=== PATIENT | male | born 1985 | race Hispanic/Latino ===

== ENCOUNTER 2018-08-25 16:50 | Inpatient (IN) ==
[2018-08-25] MEDS ORDERED: DOCUSATE 100 MG CAPSULE PO PRN (17:04)
[2018-08-25] MEDS ORDERED: CALCIUM CARBONATE 500 MG (TUMS) CHEWABLE TABLET PO PRN (17:04)
[2018-08-25] MEDS ORDERED: HYDROmorphone 2 MG/1 ML IVP PRN (17:04)
[2018-08-25] MEDS ORDERED: HYDROcodone-APAP 5 MG -325 MG TABLET PO PRN (17:04)
[2018-08-25] MEDS ORDERED: LIDOCAINE W/ SODIUM BICARB 0.5 ML SYR SUBD PRN (17:04)
[2018-08-25] MEDS ORDERED: ONDANSETRON 4 MG/2 ML VIAL IVP PRN (17:04)
[2018-08-25] MEDS ORDERED: ACETAMINOPHEN 325 MG TABLET PO PRN (17:04)
[2018-08-25] MEDS ORDERED: Insulin Sliding Scale Protocol SUBCUT PRN (17:09)
[2018-08-25] MEDS ORDERED: Glucagon Inj Vial 1 MG/ML VIAL IM PRN (17:09)
[2018-08-25] MEDS ORDERED: DEXTROSE 50%-WATER SYRINGE 50 ML SYRINGE IVP PRN (17:09)
[2018-08-25] MEDS ORDERED: DEXTROSE 31 GM GEL PO PRN (17:09)
--- NOTE | 2018-08-25 17:15 | PDOC ---
HPI - History of Present Illness Date of Service: 08/25/18 Time of Service: 17:10 Chief Complaint: right great toe pain History of Present Illness: This is a very pleasant 33 year old with DMII, well controlled in the past with diet and exercise, who moved here 6 weeks ago for [employer] work. He expects to be in [place] for up to 3 years possibly. He had a perirectal abscess that required I and D recently. He was working and noticed that he developed a right great toe blister. He tried not to pop the blister but it popped anyway. He treated it locally with topical antibiotics, soaks, and hydrogen peroxide. Last Saturday, he noted the toe got red and swollen and tender. He denies any fever, chills, nausea, vomiting, or other systemic symptoms. The patient does admit to tobacco use, currently chews tobacco. In the orthopedic clinic, it was noted that the toe infection was severe, with some necrotic tissue apparently, and an X ray of the foot confirmed right great toe osteomyelitis. Due to the unknown nature of his diabetes control, I was asked to admit the patient for a presurgical evaluation and also to check on best antibiotic regimen to use. In terms of his diabetes mellitus, he has been on glipizide, has controlled with diet and exercise, and has been on metformin. Has not been on medications in quite a while now. He could not tolerate metformin. Past Medical History Medical History: 1. DMII, possibly complicated by peripheral neuropathy. Surgical History: 1. perirectal abscess. 2. back abscess drained. Pertinent Family History: significant for diabetes mellitus Past Social History: , from [place], no children. does not drink alcohol. smokes, but recently has started chewing tobacco. Here in [place], [place] , for work. Tobacco Use: Current Every Day Smoker Do you dip or chew tobacco: Yes In the Past 12 Months, Have Used or Abuse Any of the Following Substance: None Alcohol Use: None Medication / Allergies Home Medications: Home Medications 3 Medication Instructions Recorded Confirmed Type NK 08/25/18 08/25/18 History Allergies/Adverse Reactions: Allergies 3 Allergy/AdvReac Type Severity Reaction Status Date / Time Penicillins Allergy Severe Anaphylaxis Uncoded 08/25/18 17:11 Exam - Vitals Vital Signs: Temperature, 97.8, Heart rate, 106, RR 18, Blood pressure 157/105, oxygen saturation 98% - General General Appearance: No Acute Distress, Cooperative - Head Head Exam: Normal Inspection, Normocephalic, Atraumatic - Eye Eye Exam: POSITIVE: No Scleral Icterus - ENT ENT Exam: POSITIVE: Mucous Membranes Moist - Neck Neck Exam: Normal Inspection, No Tenderness, No Lymphadenopathy, No Thyromegaly , JVP is not Raised - Respiratory Respiratory Exam: POSITIVE: Clear to Auscultation - Bilaterally, Breathing Non Labored, Normal to Percussion and Palpation - Cardiovascular Cardiovascular Exam: POSITIVE: RRR, No Murmur, No Clicks, No Gallops, No Rubs, No JVD - GI/Abdominal GI/Abdominal Exam: POSITIVE: Normal Bowel Sounds, Non Tender, Non Distended, Soft - Rectal Rectal Exam: POSITIVE: Deferred - External Exam: POSITIVE: Deferred Exam: POSITIVE: Deferred - Extremities Extremities Exam: POSITIVE: No Clubbing Present, No Edema Present, No Cyanosis Present - Back Back Exam: POSITIVE: No CVA Tenderness - Neurological Neurological Exam: POSITIVE: Alert, Oriented x 3, No Facial Droop, Speech Intact / Clear, Moves All Extremities Equally - Psychiatric Psychiatric Exam: POSITIVE: Normal Affect, Normal Mood - Central Line Examination Central Line Present on Admission: No Results - Labs CBC and BMP: 08/25/18 17:25 08/25/18 17:25 Additional Lab Results: I am ordering several labs, including a CBC with differential, CMP, PT, INR, sed rate, CRP, HbA1C, and lipid panel, and thyroid studies. - Imaging Status: Image Reviewed by Me (I viewed the foot X-ray in the clinic and discussed with Dr. Mayer. It confirms osteomyelitis of the right great toe with bone obliteration) Assessment and Plan - Patient Problems (1) Osteomyelitis of toe of right foot Current Visit: Yes Status: Acute Code(s): M86.9 - Osteomyelitis, unspecified (2) DMII (diabetes mellitus, type 2) Current Visit: Yes Status: Acute Code(s): E11.9 - Type 2 diabetes mellitus without complications Qualifiers: Diabetes mellitus custodial insulin use: without termite control technician use Diabetes mellitus complication status: with skin complications Diabetes mellitus complication detail: with other skin complication Qualified Code(s): E11.628 - Type 2 diabetes mellitus with other skin complications (3) Tobacco abuse Current Visit: Yes Status: Acute Code(s): Z72.0 - Tobacco use (4) Tobacco abuse counseling Current Visit: Yes Status: Acute Code(s): Z71.6 - Tobacco abuse counseling - Assessment / Plan Additional Assessment/Plan Details: admit to inpatient ortho consulted, probable amputation tomorrow of toe (right) insulin sliding scale laboratory workup IV antibiotics through surgery, then if no soft tissue infection post surgery, may need to stay on keflext for 5 to 7 days. If soft tissue infection and cellulitis after surgery, recommend ID consultation. I curbsided ID and they agreed with this plan. pain meds/anti-emetics IV fluids and NPO overnight, likely to OR tomorrow.
[2018-08-25 17:36] LABS: BASOPHILS # (AUTO) 0.03 10*3/UL; BASOPHILS % (AUTO) 0.5 % (0-1); EOSINOPHILS # (AUTO) 0.24 10*3/UL; EOSINOPHILS % (AUTO) 3.6 % (0-8); Hematocrit [HCT] 39.9 % (42.0-52.0); Hemoglobin [HGB] 14.3 g/dL (14.0-18.0); LYMPHOCYTES # (AUTO) 1.72 10*3/uL; MEAN CORPUSCULAR HGB CONC 35.8 g/dL (33-37); MEAN CORPUSCULAR VOLUME 80.9 FL (80-90); MEAN PLATELET VOLUME 8.9 FL (7.4-12.2); MONOCYTES # (AUTO) 0.59 10*3/UL (0.3-0.8); MONOCYTES % (AUTO) 8.9 % (5-15); NEUTROPHILS # (AUTO) 4.02 10*3/UL; NEUTROPHILS % (AUTO) 60.7 % (50-80); RED BLOOD COUNT 4.93 10^6/uL (4.70-6.10)
[2018-08-25 17:45] LABS: HEMOGLOBIN A1C 10.44 % (4.2-6.0)
[2018-08-25 17:49] LABS: BLOOD UREA NITROGEN 16 mg/dL (7-22); CHOL/HDL RATIO 9.42 RATIO (0-4.0); SERUM ALBUMIN 4.3 g/dL (3.5-4.8); SERUM CHOLESTEROL 264 mg/dL (120-200)
[2018-08-25 17:50] LABS: PLATELET MORPHOLOGY COMMENT NORMAL MORPHOLOGY (NORM); RBC MORPHOLOGY COMMENT NORMAL MORPHOLOGY (NORM); WBC MORPHOLOGY COMMENT NORMAL MORPHOLOGY (NORM)
[2018-08-25] MEDS: NICOTINE 21 MG /DAY PATCH TRANSDERM SCH (18:13)
[2018-08-25] MEDS ORDERED: Insulin Lispro Flexpen 300 UNIT/3 ML INSULN.PEN SUBCUT ONE (18:16)
[2018-08-25] MEDS ORDERED: Vancomycin-PHA to Dose IV PRN (19:05)
[2018-08-25] MEDS ORDERED: cefTAZidime Inj 2 GM in Sodium Chloride 0.9% 100 ML IV SCH (20:00)
[2018-08-25] MEDS ORDERED: HYDRALAZINE 20 MG/1 ML IVP PRN (20:00)
[2018-08-25] MEDS: Insulin Lispro Flexpen 300 UNIT/3 ML INSULN.PEN SUBCUT SCH (20:39)
[2018-08-25] MEDS ORDERED: Insulin Glargine SoloStar Inj 100 UNIT/ML INSULN.PEN SUBCUT SCH (21:00)
[2018-08-26] MEDS: Lactated Ringers 1,000 ML PRIMARY IV SCH ×3 (01:41→19:01)
[2018-08-26 05:21] LABS: BASOPHILS # (AUTO) 0.02 10*3/UL; BASOPHILS % (AUTO) 0.3 % (0-1); EOSINOPHILS # (AUTO) 0.26 10*3/UL; EOSINOPHILS % (AUTO) 4.4 % (0-8); Hemoglobin [HGB] 12.2 g/dL (14.0-18.0); LYMPHOCYTES # (AUTO) 1.68 10*3/uL; MEAN CORPUSCULAR HEMOGLOBIN 27.7 PG (27-31); MEAN CORPUSCULAR HGB CONC 33.9 g/dL (33-37); MEAN CORPUSCULAR VOLUME 81.6 FL (80-90); MONOCYTES # (AUTO) 0.45 10*3/UL (0.3-0.8); MONOCYTES % (AUTO) 7.6 % (5-15); NEUTROPHILS # (AUTO) 3.47 10*3/UL; NEUTROPHILS % (AUTO) 58.4 % (50-80); RED BLOOD COUNT 4.41 10^6/uL (4.70-6.10)
[2018-08-26 05:27] LABS: PLATELET MORPHOLOGY COMMENT NORMAL MORPHOLOGY (NORM); RBC MORPHOLOGY COMMENT NORMAL MORPHOLOGY (NORM); WBC MORPHOLOGY COMMENT NORMAL MORPHOLOGY (NORM)
[2018-08-26 05:31] LABS: BLOOD UREA NITROGEN 15 mg/dL (7-22)
[2018-08-26] MEDS: cefTAZidime Inj 2 GM in Sodium Chloride 0.9% 100 ML IV SCH ×3 (06:05→17:18)
[2018-08-26] MEDS: GEMFIBROZIL 600 MG TABLET PO SCH ×2 (06:36→17:57)
[2018-08-26] MEDS: Insulin Lispro Flexpen 300 UNIT/3 ML INSULN.PEN SUBCUT SCH ×4 (06:37→21:02)
[2018-08-26] MEDS: NICOTINE 21 MG /DAY PATCH TRANSDERM SCH (08:00)
--- NOTE | 2018-08-26 09:29 | CONSULT ---
Consult Note - Consult Reason for Consult: PreOp Consulation : Ortho Primary Care Provider: Denys Sy MD - History of Present Illness History of Present Illness: This patient is 33 years old and is admitted for osteomyelitis of the right great toe distal phalanx with subsequent ulceration of the skin. I saw him in my office yesterday afternoon late. I consulted Dr. Briscoe who admitted the patient last night. Patient is in need of amputation of the right great toe through the IP joint level. Plan is to do this this afternoon. He is not currently septic from this but could become so. Apparently he is MRSA positive. He has been given some antibiotics specifically vancomycin upon admission. Examination of the right great toe reveals necrotic ulceration distal half of the great toe. More involvement plantarward. The toe has a foul odor with discharge dripping from the toe. X-rays reveal osteomyelitis of the distal one half of the distal phalanx. There is moth-eaten appearance of the bone. Labs show a white blood cell count of 5000+ CRP of 3.2. Patient is currently afebrile. Impression: Osteomyelitis with diabetic ulceration right great toe. Plan: Is to proceed with amputation of the right great toe through the IP joint level. We'll likely leave this open and do a delayed primary closure tomorrow afternoon. Consent will be obtained. Past Medical History Medical History: 1. DMII, possibly complicated by peripheral neuropathy. Surgical History: 1. perirectal abscess. 2. back abscess drained. Pertinent Family History: significant for diabetes mellitus Past Social History: , from [place], no children. does not drink alcohol. smokes, but recently has started chewing tobacco. Here in [place], [place] , for work. Tobacco Use: Current Every Day Smoker Do you dip or chew tobacco: Yes In the Past 12 Months, Have Used or Abuse Any of the Following Substance: None Alcohol Use: None Medication / Allergies Home Medications: Home Medications 3 Medication Instructions Recorded Confirmed Type NK 08/25/18 08/25/18 History Allergies/Adverse Reactions: Allergies 3 Allergy/AdvReac Type Severity Reaction Status Date / Time Penicillins Allergy Severe Anaphylaxis Uncoded 08/26/18 07:24 Exam - Vitals Vital Signs: Vital Signs Temperature 97.7 F Temperature Source Temporal Artery Scan Pulse Rate [Pulse Oximeter] 91 Pulse Rate 86 Respiratory Rate 20 Blood Pressure [Right Arm] 141/86 Pulse Ox 98 Oxygen Delivery Method Room Air Height 5 ft 7 in Weight 199 lb Results - Labs CBC and BMP: 08/26/18 04:40 08/26/18 04:40
--- NOTE | 2018-08-26 09:52 | PDOC(PROG) ---
Date of Service: 08/26/18 Time of Service: 10:00 Interval History: Subjective Patient was admitted yesterday for osteomyelitis of the right big toe. He Said he had diabetes 14 years. Was on glipizide but being off that for many years ago. He said he was heavier and lost weight. He manages diabetes with diet and exercise. But he did admit that he is not exercising much. There is no significant pain. Objective : Data - Labs CBC and BMP: 08/26/18 04:40 08/26/18 04:40 Objective : Exam - General General Appearance: No Acute Distress, Cooperative - Head Head Exam: Normal Inspection - Eye Eye Exam: Normal Appearance - ENT ENT Exam: Normal Exam - Neck Neck Exam: Normal Inspection - Respiratory Respiratory Exam: Clear to Auscultation - Bilaterally - Cardiovascular Cardiovascular Exam: RRR - GI/Abdominal GI/Abdominal Exam: Normal Bowel Sounds, Non Tender, Non Distended, Soft, No Organomegaly - Rectal Rectal Exam: Deferred - External Exam: Deferred - Extremities Additional Extremities Exam Details: Dressing applied to the right foot. - Neurological Neurological Exam: Alert, Oriented x 3, CN II-XII Intact, No Facial Droop, Speech Intact / Clear - Psychiatric Psychiatric Exam: Normal Affect Assessment and Plan - Patient Problems (1) Osteomyelitis of toe of right foot Current Visit: Yes Status: Acute Comment: He will have surgery today. Per my discussion with Dr. Mayer he will leave the wound open. He'll take him tomorrow to close it. Code(s): M86.9 - Osteomyelitis, unspecified (2) DMII (diabetes mellitus, type 2) Current Visit: Yes Status: Acute Comment: For diabetes he is on insulin. I think post discharge neisha probably put him on oral medications based on his preference. He was on glipizide before. He said he never tolerated metformin before. Code(s): E11.9 - Type 2 diabetes mellitus without complications Qualifiers: Diabetes mellitus care home insulin use: without care home use Diabetes mellitus complication status: with skin complications Diabetes mellitus complication detail: with other skin complication Qualified Code(s): E11.628 - Type 2 diabetes mellitus with other skin complications (3) Tobacco abuse Current Visit: Yes Status: Acute Comment: He has on nicotine patch. And he was counseled on quitting smoking. Code(s): Z72.0 - Tobacco use
[2018-08-26] MEDS ORDERED: Lactated Ringers 1,000 ML PRIMARY IV SCH (11:30)
[2018-08-26] MEDS ORDERED: Nasal Sanitizer POPSWAB ampule 3 AMP (Nozin) PREOP DOSE ENOS SCH (12:00)
[2018-08-26] MEDS ORDERED: ROPIVACAINE HCL 7.5 MG/1 ML - 20 ML ONE (13:20)
[2018-08-26] MEDS ORDERED: fentaNYL Inj 100 MCG/2 ML VIAL ONE (13:21)
[2018-08-26] MEDS ORDERED: LIDOCAINE 2%/ EPI 1:200,000 - 20 ML VIAL ONE (13:21)
[2018-08-26] MEDS ORDERED: MIDAZOLAM 5 MG/1 ML ONE (13:21)
[2018-08-26] MEDS ORDERED: LIDOCAINE W/ SODIUM BICARB 0.5 ML SYR ONE (13:30)
--- NOTE | 2018-08-26 13:55 | CRNA.PROCE ---
Nerve Block Documentation - - Safety Measures: Time Out Taken, Site Verified - - Type of Nerve Block Used: Right Popliteal Fossa Block Position for Nerve Block: Prone Sedation Used - Enter Amount in Comment Field [ANES.SEDAT]: Midazolam (mg): Yes (3), Fentanyl (mcg): Yes (100) Skin Prep Used: ChloroPrep (Twice) Technique: Nerve Stimulator Nerve Block Needle Used: 80 mm ProBlk II Stimulation Hz: 1 Stimulation Staring mA: 1.8 Stimulation Ending mA: 0.6 Local Anesthetic - Enter Amt in Comment Field [ANES.LOCNB]: 2 % Xylocaine with Epinephrine 1:200,000 (mL): Yes (20 ml), Other Anesthetic: Yes (20 ml 0f 0.7% Ropi) Additives to Nerve Blocks: Dexamethasone (mg): Yes (4 mg) - - PreOp Block : Time In: 13:25 PreOp Block : Time Out: 13:37 Anesthesia Time - Other Weight: 90.265 kg Height: 5 ft 7 in Body Mass Index (BMI): 31.1
[2018-08-26] MEDS ORDERED: PROPOFOL 10 MG/1 ML (200 MG/20 ML) VIAL IV ONE (15:02)
--- NOTE | 2018-08-26 15:42 | ORTHO.OP ---
Surgery Date: 08/26/18 Preoperative Diagnosis: #1 osteomyelitis distal phalanx right great toe #2 diabetic ulcer right great toe with cellulitis. Postoperative Diagnosis: Same Procedure: Amputation right great toe through the IP joint level with open packing Surgeon: Fiona Mayer MD Anesthesia Provider: Iwona Alberto CRNA Anesthesia Type: Regional, MAC Estimated Blood Loss (mL): 15 Fluids: Crystalloid Pathology: Right great toe and accompanying distal phalanx submitted to pathology #2 cultures right great toe for both aerobes and anaerobes. Indications: Osteomyelitis right great toe distal phalanx with foul-smelling necrotic ulcer Findings: See operative report Complications: None Operative Summary: Taken to recovery room in stable condition.
--- NOTE | 2018-08-26 15:45 | CRNA.PROGR ---
Anesthesia Time - Procedure/Recovery Time Start Date: 08/26/18 End Date: 08/26/18 Anesthesia : Time In: 14:48 Anesthesia : Time Out: 15:35 Anesthesia : Total Time: 47 - Block Time PreOp Block : Time In: 13:25 PreOp Block : Time Out: 13:37 - Total Anesthesia Time Total Anesthesia Time (minutes): 47 - Other Weight: 90.265 kg Height: 5 ft 7 in Body Mass Index (BMI): 31.1 Physical Status: P3 (Diabetic, tobacco) Anesthesia Type: Popliteal Fossa Block
--- NOTE | 2018-08-26 15:45 | CRNA.PROGR ---
Post Anesthesia Phase II - Post Anesthesia Phase II Patient Stable and Discharged To: Med/Surg Care Assumed By Surgeon: Fiona Mayer MD Temperature: 98.9 F Pulse Rate: 86 Respiratory Rate: 16 Pulse Ox: 98 Total Ethel Score at Discharge: 9 Post Anesthesia Discharge Criteria Met: Yes
[2018-08-26] MEDS ORDERED: CALCIUM CARBONATE 500 MG (TUMS) CHEWABLE TABLET PO PRN (16:03)
[2018-08-26] MEDS ORDERED: MORPHINE SULFATE 2 MG/1 ML IVP PRN (16:03)
[2018-08-26] MEDS ORDERED: IBUPROFEN 400 MG TABLET PO PRN (16:03)
[2018-08-26] MEDS ORDERED: Prochlorperazine Tab 10 MG TAB PO PRN (16:03)
[2018-08-26] MEDS ORDERED: ONDANSETRON 4 MG/2 ML VIAL IVP PRN (16:03)
[2018-08-26] MEDS ORDERED: BISACODYL 5 MG TABLET PO PRN (16:03)
[2018-08-26] MEDS ORDERED: Ondansetron ODT Tab 8 MG TAB PO PRN (16:03)
[2018-08-26] MEDS ORDERED: diphenhydrAMINE 25 MG CAPSULE PO PRN (16:03)
[2018-08-26] MEDS ORDERED: HYDROcodone-APAP 7.5 MG-325 MG TABLET PO PRN (16:03)
[2018-08-26] MEDS ORDERED: ACETAMINOPHEN 325 MG TABLET PO PRN (16:03)
[2018-08-26] MEDS ORDERED: MAG HYDROX/AL HYDROX/SIMETH 30 ML SUSP PO PRN (16:03)
[2018-08-26] MEDS ORDERED: BISACODYL 10 MG SUPPOSITORY RECTAL PRN (16:03)
[2018-08-26] MEDS ORDERED: MORPHINE SULFATE 2 MG/1 ML IV PRN ×2 (16:19→16:30)
[2018-08-26] MEDS ORDERED: MORPHINE SULFATE 10 MG/1 ML IV PRN ×2 (16:19→16:30)
[2018-08-26] MEDS ORDERED: MORPHINE SULFATE 4 MG/1 ML IV PRN ×2 (16:19→16:30)
--- NOTE | 2018-08-26 16:32 | PT AM DAY ---
AM - Physical Therapy S: We had orders for an initial evaluation under Dr. Aguilar; however, the therapist participated with rounds with Dr. Mayer. Per verbal orders from Dr. Mayer, the patient is undergoing amputation surgery later this afternoon and states he will be taking care of the dressings unless otherwise notified. O: The patient was issued a short CAM boot for use following his amputation surgery later this afternoon. P: No further therapy is indicated at this time. MTDD
[2018-08-26] MEDS: Nasal Sanitizer POPSWAB ampule 1 AMP (Nozin) ENOS SCH (20:21)
[2018-08-26] MEDS ORDERED: DEXTROSE 31 GM GEL PO PRN (20:29)
[2018-08-26] MEDS ORDERED: Insulin Sliding Scale Protocol SUBCUT PRN (20:29)
[2018-08-26] MEDS ORDERED: DEXTROSE 50%-WATER SYRINGE 50 ML SYRINGE IVP PRN (20:29)
[2018-08-26] MEDS ORDERED: Glucagon Inj Vial 1 MG/ML VIAL IM PRN (20:29)
[2018-08-26] MEDS ORDERED: Insulin Glargine SoloStar Inj 100 UNIT/ML INSULN.PEN SUBCUT SCH (21:00)
[2018-08-26] MEDS ORDERED: Insulin Lispro Flexpen 300 UNIT/3 ML INSULN.PEN SUBCUT ONE (23:24)
[2018-08-27] MEDS: cefTAZidime Inj 2 GM in Sodium Chloride 0.9% 100 ML IV SCH ×4 (01:42→22:15)
[2018-08-27] MEDS: Insulin Lispro Flexpen 300 UNIT/3 ML INSULN.PEN SUBCUT SCH ×4 (06:34→21:02)
[2018-08-27] MEDS: GEMFIBROZIL 600 MG TABLET PO SCH ×2 (06:34→18:37)
--- NOTE | 2018-08-27 08:23 | ORTHO.PROG ---
Last Taken Vital Signs: Vital Signs - Last Taken Temperature 98.1 F 08/27/18 06:32 Pulse Rate 93 08/27/18 06:32 Respiratory Rate 18 08/27/18 06:32 Blood Pressure 135/102 08/27/18 06:32 Pulse Ox 98 08/27/18 06:32 Subjective: Patient sitting up in bed. His is arrived from [place]. They plan on going back to [place] for Thanksgiving once he leaves here. Not reporting much pain. Objective: Vital signs stable patient afebrile. Right foot dressing is clean and dry. Gram stain shows many gram-positive cocci. Cultures are pending. Assessment: Impression: Doing well postop day 1 from amputation right great toe for osteomyelitis. Plan: Plan: Is to continue IV vancomycin for now. We will decide what to be the best antibiotic regimen once he leaves here, as he will be traveling to [place] for about a week.
[2018-08-27] MEDS: NICOTINE 21 MG /DAY PATCH TRANSDERM SCH (08:28)
[2018-08-27] MEDS: Nasal Sanitizer POPSWAB ampule 1 AMP (Nozin) ENOS SCH ×2 (08:29→21:24)
[2018-08-27 08:53] LABS: BASOPHILS # (AUTO) 0.02 10*3/UL; BASOPHILS % (AUTO) 0.2 % (0-1); EOSINOPHILS % (AUTO) 1.1 % (0-8); Hematocrit [HCT] 37.2 % (42.0-52.0); Hemoglobin [HGB] 13.2 g/dL (14.0-18.0); LYMPHOCYTES # (AUTO) 1.52 10*3/uL; MEAN CORPUSCULAR HEMOGLOBIN 28.7 PG (27-31); MEAN CORPUSCULAR HGB CONC 35.5 g/dL (33-37); MEAN CORPUSCULAR VOLUME 80.9 FL (80-90); MEAN PLATELET VOLUME 8.6 FL (7.4-12.2); MONOCYTES # (AUTO) 0.54 10*3/UL (0.3-0.8); MONOCYTES % (AUTO) 5.8 % (5-15); NEUTROPHILS # (AUTO) 7.04 10*3/UL; NEUTROPHILS % (AUTO) 76.1 % (50-80)
[2018-08-27 08:54] LABS: PLATELET MORPHOLOGY COMMENT NORMAL MORPHOLOGY (NORM); RBC MORPHOLOGY COMMENT NORMAL MORPHOLOGY (NORM); WBC MORPHOLOGY COMMENT NORMAL MORPHOLOGY (NORM)
--- NOTE | 2018-08-27 08:57 | PDOC(PROG) ---
Date of Service: 08/27/18 Time of Service: 08:35 Interval History: Subjective Patient was sitting in bed does not appear in distress. Denying complaint. No significant pain. Objective : Data - Labs CBC and BMP: 08/27/18 08:48 08/26/18 04:40 Objective : Exam - General General Appearance: No Acute Distress, Cooperative - Head Head Exam: Normal Inspection - Eye Eye Exam: Normal Appearance - ENT ENT Exam: Normal Exam - Neck Neck Exam: Normal Inspection - Respiratory Respiratory Exam: Clear to Auscultation - Bilaterally - Cardiovascular Cardiovascular Exam: RRR - GI/Abdominal GI/Abdominal Exam: Normal Bowel Sounds, Non Tender, Non Distended, Soft, No Organomegaly - Rectal Rectal Exam: Deferred - External Exam: Deferred - Extremities Additional Extremities Exam Details: Dressing applied to the right foot - Back Back Exam: Normal Inspection - Neurological Neurological Exam: Alert, Oriented x 3, CN II-XII Intact, No Facial Droop, Speech Intact / Clear, Moves All Extremities Equally - Psychiatric Psychiatric Exam: Normal Affect Assessment and Plan - Patient Problems (1) Osteomyelitis of toe of right foot Current Visit: Yes Status: Acute Comment: Status post amputation of the distal phalanx. Dr. Mayer will take him again to close the wound today. Cultures still pending. once I have the result will speak with infectious disease. Code(s): M86.9 - Osteomyelitis, unspecified (2) DMII (diabetes mellitus, type 2) Current Visit: Yes Status: Acute Comment: His blood sugar really spiked last night and we had to give him extra insulin. I did tell him I'm not sure that oral medication will be enough to control his blood sugar. He is okay with being on inslin and so I think on discharge will put him on insulin. Code(s): E11.9 - Type 2 diabetes mellitus without complications Qualifiers: Diabetes mellitus nursing home insulin use: without termite control service representative use Diabetes mellitus complication status: with skin complications Diabetes mellitus complication detail: with other skin complication Qualified Code(s): E11.628 - Type 2 diabetes mellitus with other skin complications (3) Tobacco abuse Current Visit: Yes Status: Acute Comment: He has a nicotine patch. Code(s): Z72.0 - Tobacco use (4) Hypertriglyceridemia Current Visit: Yes Status: Acute Comment: He is on Lopid continue. Code(s): E78.1 - Pure hyperglyceridemia
[2018-08-27] MEDS ORDERED: Lactated Ringers 1,000 ML PRIMARY IV SCH ×2 (11:45→19:47)
[2018-08-27] MEDS ORDERED: LIDOCAINE 2%/ EPI 1:200,000 - 20 ML VIAL ONE (17:34)
[2018-08-27] MEDS ORDERED: MIDAZOLAM 5 MG/1 ML ONE (17:34)
[2018-08-27] MEDS ORDERED: BUPivacaine Inj 0.5% PF (5mg/ml) 30ml vial ONE (17:34)
[2018-08-27] MEDS ORDERED: cloNIDine HCL/PF 100 MCG/ML - 10 ML VIAL ONE (17:34)
[2018-08-27] MEDS ORDERED: fentaNYL Inj 100 MCG/2 ML VIAL ONE (17:34)
[2018-08-27] MEDS ORDERED: LIDOCAINE W/ SODIUM BICARB 0.5 ML SYR ONE (17:38)
[2018-08-27] MEDS ORDERED: PROPOFOL 10 MG/1 ML (200 MG/20 ML) VIAL IV ONE (18:12)
--- NOTE | 2018-08-27 18:25 | CRNA.PROCE ---
Nerve Block Documentation - - Type of Nerve Block Used: Right Popliteal Fossa Block Position for Nerve Block: Prone Moniters Used During Block: EKG, SPO2, NIBP Oxygen Supplemented: Yes Sedation Used - Enter Amount in Comment Field [ANES.SEDAT]: Midazolam (mg): Yes (2mg), Fentanyl (mcg): Yes (50mcg) Skin Prep Used: ChloroPrep Draped: No Technique: Nerve Stimulator Nerve Block Needle Used: GANTEC 50 mm Stimulation Hz: 2 Stimulation Staring mA: 1.4 Stimulation Ending mA: 0.44 Local Anesthetic - Enter Amt in Comment Field [ANES.LOCNB]: 0.5 % Bupivacaine Plain (mL): Yes (20ml), 2 % Xylocaine with Epinephrine 1:200,000 (mL): Yes (20ml ) Additives to Nerve Blocks: Clonidine (mg): Yes (.1mg) - - PreOp Block : Time In: 18:20 PreOp Block : Time Out: 18:35 Anesthesia Time - Block Time PreOp Block : Time In: 13:25 PreOp Block : Time Out: 13:37 - Other Weight: 90.265 kg Height: 5 ft 7 in Body Mass Index (BMI): 31.1
[2018-08-27] MEDS ORDERED: NEOMYCIN/BACITRACIN/POLYMYXIN 0.9 GM OINT PACKET TOPICAL ONE (18:36)
--- NOTE | 2018-08-27 18:53 | CRNA.PROGR ---
Anesthesia Time - Procedure/Recovery Time Start Date: 08/27/18 End Date: 08/27/18 Anesthesia : Time In: 19:05 Anesthesia : Time Out: 19:48 Anesthesia : Total Time: 43 - Block Time Start Date: 08/27/18 End Date: 08/27/18 PreOp Block : Time In: 13:25 PreOp Block : Time Out: 13:37 PreOp Block : Total Time: 12 - Total Anesthesia Time Total Anesthesia Time (minutes): 55 - Other Weight: 90.265 kg Height: 5 ft 7 in Body Mass Index (BMI): 31.1 Physical Status: P2 Anesthesia Type: Popliteal Fossa Block (with sedation)
--- NOTE | 2018-08-27 18:53 | CRNA.PROGR ---
Post Anesthesia Phase II - Post Anesthesia Phase II Patient Stable and Discharged To: Phase II Care Assumed By Surgeon: Fiona Mayer MD Temperature: 97.3 F Pulse Rate: 85 Respiratory Rate: 18 Blood Pressure: 121/79 Pulse Ox: 97 Total Tehel Score at Discharge: 9 Post Anesthesia Discharge Criteria Met: Yes
--- NOTE | 2018-08-27 18:55 | ORTHO.OP ---
Surgery Date: 08/27/18 Preoperative Diagnosis: Osteomyelitis distal phalanx right great toe, status post amputation #2 diabetic ulcer right great toe Postoperative Diagnosis: Same Procedure: I&D with delayed primary closure right great toe wound Surgeon: Fiona Mayer MD Anesthesia Provider: Emmanuel Knight CRNA Anesthesia Type: Regional Estimated Blood Loss (mL): 10 Fluids: Crystalloid Complications: None Operative Summary: Taken to recovery room in stable condition.
[2018-08-27] MEDS ORDERED: DEXTROSE 31 GM GEL PO PRN ×2 (19:47)
[2018-08-27] MEDS ORDERED: HYDROcodone-APAP 7.5 MG-325 MG TABLET PO PRN (19:47)
[2018-08-27] MEDS ORDERED: Ondansetron ODT Tab 8 MG TAB PO PRN ×2 (19:47)
[2018-08-27] MEDS ORDERED: DEXTROSE 50%-WATER SYRINGE 50 ML SYRINGE IVP PRN ×2 (19:47)
[2018-08-27] MEDS ORDERED: diphenhydrAMINE 25 MG CAPSULE PO PRN ×2 (19:47)
[2018-08-27] MEDS ORDERED: ONDANSETRON 4 MG/2 ML VIAL IVP PRN (19:47)
[2018-08-27] MEDS ORDERED: MORPHINE SULFATE 10 MG/1 ML IV PRN (19:47)
[2018-08-27] MEDS ORDERED: MORPHINE SULFATE 4 MG/1 ML IV PRN (19:47)
[2018-08-27] MEDS ORDERED: Glucagon Inj Vial 1 MG/ML VIAL IM PRN ×2 (19:47)
[2018-08-27] MEDS ORDERED: MAG HYDROX/AL HYDROX/SIMETH 30 ML SUSP PO PRN ×2 (19:47)
[2018-08-27] MEDS ORDERED: CALCIUM CARBONATE 500 MG (TUMS) CHEWABLE TABLET PO PRN ×2 (19:47)
[2018-08-27] MEDS ORDERED: Prochlorperazine Tab 10 MG TAB PO PRN ×2 (19:47)
[2018-08-27] MEDS ORDERED: BISACODYL 10 MG SUPPOSITORY RECTAL PRN ×2 (19:47)
[2018-08-27] MEDS ORDERED: ACETAMINOPHEN 325 MG TABLET PO PRN ×2 (19:47)
[2018-08-27] MEDS ORDERED: Insulin Sliding Scale Protocol SUBCUT PRN (19:47)
[2018-08-27] MEDS ORDERED: IBUPROFEN 400 MG TABLET PO PRN ×2 (19:47)
[2018-08-27] MEDS ORDERED: HYDRALAZINE 20 MG/1 ML IVP PRN (19:47)
[2018-08-27] MEDS ORDERED: MORPHINE SULFATE 2 MG/1 ML IV PRN (19:47)
[2018-08-27] MEDS ORDERED: BISACODYL 5 MG TABLET PO PRN ×2 (19:47)
[2018-08-27] MEDS ORDERED: Insulin Glargine SoloStar Inj 100 UNIT/ML INSULN.PEN SUBCUT SCH ×2 (21:00)
[2018-08-27] MEDS ORDERED: Ampicillin/Sulbactam Inj 3 GM in Sodium Chloride 0.9% 100 ML IV SCH (21:00)
[2018-08-28] MEDS: cefTAZidime Inj 2 GM in Sodium Chloride 0.9% 100 ML IV SCH (05:23)
[2018-08-28] MEDS: Insulin Lispro Flexpen 300 UNIT/3 ML INSULN.PEN SUBCUT SCH ×2 (06:51→11:25)
[2018-08-28] MEDS ORDERED: GEMFIBROZIL 600 MG TABLET PO SCH (07:00)
[2018-08-28] MEDS ORDERED: cefTAZidime Inj 2 GM in Sodium Chloride 0.9% 100 ML IV SCH ×2 (07:45→21:00)
--- NOTE | 2018-08-28 08:37 | ORTHO.PROG ---
Last Taken Vital Signs: Vital Signs - Last Taken Temperature 96.9 F 08/28/18 06:40 Pulse Rate 80 08/28/18 06:40 Respiratory Rate 18 08/28/18 06:40 Blood Pressure 141/97 08/28/18 06:40 Pulse Ox 99 08/28/18 06:40 Subjective: Patient lying in bed. Not reporting much pain. Objective: Vital signs stable patient afebrile. Right foot dressing clean and dry. Cultures are still pending. Likely is going to be Klebsiella pneumonia and possibly Enterococcus faecalis. Sensitivity still to follow. Assessment: Impression: Doing well following amputation right great toe for osteomyelitis. Plan: Plan: Is to with the sensitivities and decide on appropriate antibiotics. Patient is allergic to penicillin so have to be something other than penicillin
--- NOTE | 2018-08-28 08:43 | PDOC(PROG) ---
Date of Service: 08/28/18 Time of Service: 08:45 Interval History: Subjective No new symptoms. Had the wound closed last night. Objective : Data - Labs CBC and BMP: 08/28/18 10:10 08/26/18 04:40 Objective : Exam - General General Appearance: No Acute Distress - Head Head Exam: Normal Inspection - Eye Eye Exam: Normal Appearance - ENT ENT Exam: Normal Exam - Neck Neck Exam: Normal Inspection - Respiratory Respiratory Exam: Clear to Auscultation - Bilaterally - Cardiovascular Cardiovascular Exam: RRR - GI/Abdominal GI/Abdominal Exam: Normal Bowel Sounds, Non Tender, Non Distended, Soft, No Organomegaly - Rectal Rectal Exam: Deferred - External Exam: Deferred - Extremities Additional Extremities Exam Details: Dressing applied to the right foot. - Back Back Exam: Normal Inspection - Neurological Neurological Exam: Alert, Oriented x 3, CN II-XII Intact, No Facial Droop, Speech Intact / Clear - Psychiatric Psychiatric Exam: Normal Affect Assessment and Plan - Patient Problems (1) Osteomyelitis of toe of right foot Current Visit: Yes Status: Acute Comment: Status post amputation and closure of the wound. Waiting for culture results. I did leave a message to ID yesterday but did not call me back I'll call them again today. Code(s): M86.9 - Osteomyelitis, unspecified (2) DMII (diabetes mellitus, type 2) Current Visit: Yes Status: Acute Comment: Continue current medications. I spoke with the pharmacy as he doesn't have insurance and cannot afford the medication and will try to see what samples we have which we can give him to help him control his blood sugar. Code(s): E11.9 - Type 2 diabetes mellitus without complications Qualifiers: Diabetes mellitus watermelon inspector insulin use: without retirement use Diabetes mellitus complication status: with skin complications Diabetes mellitus complication detail: with other skin complication Qualified Code(s): E11.628 - Type 2 diabetes mellitus with other skin complications (3) Tobacco abuse Current Visit: Yes Status: Acute Comment: He has a nicotine patch. Code(s): Z72.0 - Tobacco use (4) Hypertriglyceridemia Current Visit: Yes Status: Acute Comment: Continue Lopid Code(s): E78.1 - Pure hyperglyceridemia
[2018-08-28] MEDS ORDERED: NICOTINE 21 MG /DAY PATCH TRANSDERM SCH (09:00)
[2018-08-28] MEDS: Nasal Sanitizer POPSWAB ampule 1 AMP (Nozin) ENOS SCH (10:09)
[2018-08-28 10:14] LABS: Hematocrit [HCT] 34.1 % (42.0-52.0); Hemoglobin [HGB] 11.7 g/dL (14.0-18.0); MEAN CORPUSCULAR HEMOGLOBIN 28.3 PG (27-31); MEAN CORPUSCULAR HGB CONC 34.3 g/dL (33-37); MEAN CORPUSCULAR VOLUME 82.4 FL (80-90); MEAN PLATELET VOLUME 8.5 FL (7.4-12.2); RED BLOOD COUNT 4.14 10^6/uL (4.70-6.10)
[2018-08-28 11:19] VITALS: BP 135/93; RESP 17; TEMP 97.3; O2SAT 100
--- NOTE | 2018-08-28 12:04 | PT.PROG ---
Progress Note Progress Note: S. Patient stated that he is feeling good and would like to go home. O. Patient ambulated 40 feet to the stair well and ascended and descended 4 stairs and ambulated 40 feet back to his room where he was left at the edge of the bed. A. Patient tolerated ambulation and stair training well, he has met all goals at this time. P. Patient was only seen for stair and gait training at this time.
--- NOTE | 2018-08-28 15:26 | DCSUMMARY ---
Hospitalization Summary Admit Date: 08/25/2018 Discharge Date: 08/28/18 Hospital Course: Discharge diagnoses 1. 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 2. Uncontrolled diabetes 3. Hypertriglyceridemia 4. Tobacco abuse Hospital course This is a 33 years old male with medical history significant for history of diabetes type II only on diet and exercise, he is working here noticed that he developed a right great toe blister. He treated it locally with topical antibiotics, soaks and hydrogen peroxide. Few days before admission the toe got red, swollen and tender. There was no fever or nausea or chills. He went to the urgent clinic and from there to the orthopedic clinic. An x-ray of the foot, confirmed right great toe osteomylitis. He was admitted to the hospital by Dr. Briscoe please see his note. Patient was put on antibiotics ceftazidime and vancomycin. the patient had surgery done by Dr. Mayer where he had amputation of the right great toe to the interphalangeal joint level. Initially it was left open and he took him to his close the wound the next day. Growth on culture showed Klebsiella and enterococcus. Enterococcus from the sample was taken from the urgent clinic and the Klebsiella was from the sample was taking by Dr. Mayer. I saw him later on during her hospital stay we continued with the treatment. on The day of discharge he was doing well. I spoke with infectious disease they recommended that we switch him to oral Keflex for 10 days. his blood sugar is uncontrolled and the we put him on insulin. We gave him sample of Lantus and Humalog. He's planning to go to [place] and come back on the of this month. We booked him for appointment on the with a dietitian and a new primary. Then they can determine the regimen that would best fit him. it Was also noted that he has hypertriglyceridemia and was put on Lopid.. Discharge instruction Diet diabetic Activity as started Medications Current Medication(s) 3 Medication Instructions Recorded Confirmed Type Cephalexin 1,000 mg PO TID #60 tab 08/28/18 Rx Gemfibrozil [Lopid] 600 mg PO AC BK DIN #60 tab 08/28/18 Rx HYDROcodone/APAP 7.5/325 Tab 1 tab PO QID PRN #12 tab 08/28/18 Rx [[place] 7.5/325 Tab] Insulin Glargine SoloStar Inj 16 unit SUBCUT BEDTIME insuln.pen 08/28/18 Rx [Lantus SoloStar Inj] Insulin Lispro Flexpen Inj 0 - 16 unit SUBCUT AC HS 08/28/18 Rx [HumaLOG Flexpen Inj] insuln.pen Follow-up with Dr. Mayer tomorrow morning, with the parent educator and the PCP on Saturday. Condition at discharge stable for discharge Exam - Vitals Vital Signs: Vital Signs Temperature 97.3 F Temperature Source Temporal Artery Scan Pulse Rate [Pulse Oximeter] 82 Pulse Rate 85 Respiratory Rate 17 Blood Pressure [Right Arm] 135/93 Blood Pressure 121/79 Pulse Ox 100 Oxygen Flow Rate RA Oxygen Delivery Method Room Air Height 5 ft 7 in Weight 204 lb 6.4 oz Patient Problems - Patient Problem List (1) Osteomyelitis of toe of right foot Status: Acute Code(s): M86.9 - Osteomyelitis, unspecified Category: Medical (2) DMII (diabetes mellitus, type 2) Status: Acute Code(s): E11.9 - Type 2 diabetes mellitus without complications Qualifiers: Diabetes mellitus chcf insulin use: without exterminator helper use Diabetes mellitus complication status: with skin complications Diabetes mellitus complication detail: with other skin complication Qualified Code(s): E11.628 - Type 2 diabetes mellitus with other skin complications Category: Medical (3) Tobacco abuse Status: Acute Code(s): Z72.0 - Tobacco use Category: Medical (4) Hypertriglyceridemia Status: Acute Code(s): E78.1 - Pure hyperglyceridemia Category: Medical
== END 2018-08-28 15:57 | disposition home or self-care (01) | DRG 505 ==
LOC: MED/SURG 16:50 → OPS 08-26 12:57 → MED/SURG 08-26 15:59 → OPS 08-27 13:45 → MED/SURG 08-27 18:55
PROVIDERS: ADMIT Family Medicine; ATTEND Family Medicine